=== PATIENT | female | born 1985 | race Caucasian/White ===

== ENCOUNTER → 2019-10-21 | Outpatient (CLI) | payer BC ==
--- NOTE | 2019-10-21 16:15 | RAD ---
FOOT LEFT 3V DATE: 10/21/2019 9:50 AM INDICATION: Fifth metatarsal fracture COMPARISON: None. FINDINGS: Bones: Acute nondisplaced fracture at the base of the fifth metatarsal. Tiny posterior calcaneal enthesophyte. Joints: The joint spaces are normal. Miscellaneous: None. IMPRESSION: Acute nondisplaced fracture at the base of the fifth metatarsal Electronically signed by: Azam Russell MD (10/21/2019 4:12 PM) [id number]
== END | disposition home or self-care (01) ==
LOC: DXRAD 09:42
PROVIDERS: ATTEND Physician Assistant
DX: S92.355A Nondisplaced fracture of fifth metatarsal bone, left foot, initial encounter for closed fracture (principal); X58.XXXA Exposure to other specified factors, initial encounter; Y93.89 Activity, other specified; Y92.89 Other specified places as the place of occurrence of the external cause; Y99.8 Other external cause status
CPT/HCPCS: 73630